=== PATIENT | female | born 1970 | race African-American/Black ===

== ENCOUNTER 2017-06-13 01:00 | Outpatient (CLI) | payer SELFPAY | END 2017-06-13 01:01 | disposition home or self-care (01) | LOC: BICRAD 01:00 | PROVIDERS: ATTEND Internal Medicine | DX: K59.04 Chronic idiopathic constipation (principal) | CPT/HCPCS: 74000 ==

== ENCOUNTER 2017-06-20 07:26 | Outpatient (CLI) | payer BC | END 2017-06-20 07:27 | disposition home or self-care (01) | LOC: BICMAMMO 07:26 | PROVIDERS: ATTEND Family Medicine | DX: Z12.31 Encounter for screening mammogram for malignant neoplasm of breast (principal) | CPT/HCPCS: 77067; G0202 ==

== ENCOUNTER 2018-07-10 08:51 | Emergency (ER) | payer BC, OTHER ==
[2018-07-10] MEDS ORDERED: HYDROcodone/Acetaminophen 10/325 mg Tablet ONE (09:16)
--- NOTE | 2018-07-10 10:38 | RAD ---
LEFT KNEE 4 VIEWS: Date: 07/10/18 HISTORY: Injury. Periarthritis. COMPARISON: None. FINDINGS: Low grade medial compartment narrowing. Small medial compartment osteophytes. No acute fracture or ma lalignment. IMPRESSION: Mild medial compartment degenerative disease. No acute abnormality. POS: [facility]
== END 2018-07-10 10:00 | disposition home or self-care (01) ==
LOC: ERS 08:51
DX: S83.92XA Sprain of unspecified site of left knee, initial encounter (principal); Z71.6 Tobacco abuse counseling; F17.210 Nicotine dependence, cigarettes, uncomplicated; Z79.899 Other long term (current) drug therapy; W19.XXXA Unspecified fall, initial encounter

== ENCOUNTER 2020-08-22 11:33 | Emergency (ER) | payer OTHER, SELFPAY ==
[2020-08-22] MEDS ORDERED: HYDROcodone/Acetaminophen 5/325 mg Tablet ONE (12:04)
== END 2020-08-22 12:40 | disposition home or self-care (01) ==
LOC: ERS 11:33
DX: K04.01 Reversible pulpitis (principal); K02.9 Dental caries, unspecified; K03.81 Cracked tooth; M19.90 Unspecified osteoarthritis, unspecified site; F17.210 Nicotine dependence, cigarettes, uncomplicated
CPT/HCPCS: 99282

== ENCOUNTER 2021-03-20 12:06 | Emergency (ER) | payer OTHER ==
[2021-03-20 22:00] LABS: SARS-CoV-2 PCR by NAA Not Detected (NotDetected)
== END 2021-03-20 13:53 | disposition home or self-care (01) ==
LOC: ERS 12:06
DX: J30.2 Other seasonal allergic rhinitis (principal); R51.9 Headache, unspecified; Z20.822 Contact with and (suspected) exposure to COVID-19; F17.200 Nicotine dependence, unspecified, uncomplicated
CPT/HCPCS: 99283; U0003; U0005

== ENCOUNTER 2021-05-04 14:14 | Emergency (ER) | payer OTHER ==
[2021-05-04] MEDS ORDERED: Ketorolac Tromethamine 30 MG/ML VIAL ONE (14:55)
[2021-05-04 15:52] LABS: #Basophils 0.1 thou/uL (0.0-0.2); #Eosinphils 0.2 thou/uL (0.0-0.7); #Lymphocytes 3.6 thou/uL (1.20-3.40); #Monocytes 0.9 thou/uL (0.11-0.59); #Neutrophils 7.2 thou/uL (1.40-6.50); %Basophils 0.7 % (0.0-1.0); %Eosinophils 2.1 % (0.0-10.0); %Lymphocytes 29.7 % (21.0-51.0); %Monocytes 7.7 % (0.0-10.0); %Neutrophils 59.8 % (42.0-75.0); Hemoglobin 11.6 g/dL (12.0-16.0); Mean Corpuscular HGB CONC 31.7 g/dL (32.0-36.0); Mean Corpuscular Hemoglobin 26.6 pg (27.0-31.0); Mean Corpuscular Volume 83.8 fL (78.0-98.0); Mean Platelet Volume 7.9 fL (7.4-10.4); Platelet Count 376 thou/uL (130-400); RBC Distribution Width 13.5 % (11.5-14.5); Red Blood Cell (RBC) Count 4.36 mill/uL (4.20-5.40); White Blood Cell (WBC) Count 11.9 thou/uL (4.8-10.8)
[2021-05-04 16:14] LABS: ALT (SGPT) 43 U/L (8-55); AST (SGOT) 35 U/L (5-34); Albumin 3.8 g/dL (3.5-5.0); Alkaline Phosphatase 125 U/L (40-110); Anion Gap 11 mmol/L (10-20); BUN (Urea Nitrogen) 9 mg/dL (9.8-20.1); Bilirubin, Total Less than 0.2 mg/dL (0.2-1.2); Calc. Creatinine Clearance 0 mL/min (70-130); Calcium 9.6 mg/dL (7.8-10.44); Carbon Dioxide 29 mmol/L (22-29); Chloride 103 mmol/L (98-107); Globulin 3.1 g/dL (2.4-3.5); Glucose 88 mg/dL (70-105); Lipase 95 U/L (8-78); Protein, Total 6.9 g/dL (6.0-8.3); Sodium 139 mmol/L (136-145)
[2021-05-04] MEDS ORDERED: Morphine 4 MG/ML VIAL ONE (16:52)
[2021-05-04] MEDS ORDERED: Ondansetron PF 4 MG/2 ML Vial ONE (16:52)
== END 2021-05-04 17:07 | disposition home or self-care (01) ==
LOC: ERS 14:14
DX: K80.20 Calculus of gallbladder without cholecystitis without obstruction (principal); F17.210 Nicotine dependence, cigarettes, uncomplicated
CPT/HCPCS: 36415; 74176; 76705; 80053; 83690; 85025; 96372; 96374; 96375; J1885; J2270; J2405